=== PATIENT | male | born 1960 | race Two or more races ===

== ENCOUNTER 2018-07-24 21:08 | Observation (INO) | payer BC ==
[2018-07-24 21:36] LABS: #Basophils 0.1 thou/uL (0.0-0.2); #Eosinphils 0.3 thou/uL (0.0-0.7); #Lymphocytes 1.2 thou/uL (1.20-3.40); #Monocytes 0.5 thou/uL (0.11-0.59); #Neutrophils 3.3 thou/uL (1.40-6.50); %Basophils 1.2 % (0.0-1.0); %Eosinophils 4.8 % (0.0-10.0); Hemoglobin 16.5 g/dL (14.0-18.0); Mean Corpuscular Hemoglobin 31.9 pg (27.0-31.0); Mean Corpuscular Volume 96.6 fL (78.0-98.0); Mean Platelet Volume 9.3 fL (7.4-10.4); Platelet Count 173 thou/uL (130-400); RBC Distribution Width 13.2 % (11.5-14.5); Red Blood Cell (RBC) Count 5.17 mill/uL (4.70-6.10); White Blood Cell (WBC) Count 5.4 thou/uL (4.8-10.8)
[2018-07-24 21:44] LABS: INR-International Normal Ratio 0.8; PTT 27.9 SEC (22.9-36.1); Prothrombin Time 11.6 SEC (12.0-14.7)
[2018-07-24 21:50] LABS: ALT (SGPT) 65 U/L (8-55); AST (SGOT) 34 U/L (5-34); Albumin 4.4 g/dL (3.5-5.0); Alkaline Phosphatase 105 U/L (40-150); Anion Gap 14 mmol/L (10-20); BUN (Urea Nitrogen) 20 mg/dL (8.4-25.7); Bilirubin, Total 0.4 mg/dL (0.2-1.2); Calc. Creatinine Clearance 0 mL/min (70-130); Calcium 9.7 mg/dL (7.8-10.44); Carbon Dioxide 24 mmol/L (22-29); Chloride 106 mmol/L (98-107); Estimated GFR-MDRD 81; Globulin 2.6 g/dL (2.4-3.5); Glucose 100 mg/dL (70-105); Potassium 4.4 mmol/L (3.5-5.1); Sodium 140 mmol/L (136-145)
[2018-07-24] MEDS ORDERED: Aspirin Chewable 81 MG TAB ONE (22:17)
--- NOTE | 2018-07-24 22:52 | CT ---
CT BRAIN WITHOUT CONTRAST: History: Numbness and tingling. Comparison: None. FINDINGS: Old right basal ganglia infarct. No acute hemorrhage, midline shift, or mass effect. The calvarium is intact. The paranasal sinuses and mastoids are clear. Calvarium is intact. IMPRESSION: No acute intracranial abnormality. Old right basal ganglia infarct. POS: [facility]
[2018-07-25 00:16] VITALS: BMI 32.8
[2018-07-25] MEDS ORDERED: Ondansetron ODT 4 MG TAB SL PRN (00:34)
[2018-07-25] MEDS ORDERED: Acetaminophen 325 MG TAB PO PRN (00:34)
[2018-07-25] MEDS ORDERED: Ondansetron PF 4 MG/2 ML Vial IVP PRN ×2 (00:34→06:08)
[2018-07-25] MEDS ORDERED: Sodium Chloride 0.9% 1,000 ML IV SCH (00:34)
[2018-07-25] MEDS ORDERED: Labetalol HCl 100 MG/20 ML VIAL SLOW IVP PRN (06:07)
[2018-07-25] MEDS ORDERED: Senokot S 8.6-50 MG TAB PO PRN (06:08)
[2018-07-25] MEDS ORDERED: Temazepam 15 MG CAP PO PRN (06:08)
[2018-07-25] MEDS ORDERED: Acetaminophen 500 MG TAB PO PRN (06:08)
[2018-07-25] MEDS ORDERED: Ondansetron ODT 4 MG TAB PO PRN (06:08)
[2018-07-25] MEDS ORDERED: Calcium Carbonate 500 MG ChewTAB PO PRN (06:08)
--- NOTE | 2018-07-25 07:26 | HP ---
The patient admitted just before midnight 07/24/2018. The patient's PCP is myself, Dr. Elieser Manuel. HISTORY OF PRESENT ILLNESS: The patient presented to the emergency department following right-sided paresthesias through right face, arm, and leg with sudden onset. The patient denied any speech or ataxia symptoms. Symptom worsened over several hours, prompting the patient to present to the emergency department, found to have blood pressures 190s systolic over 110s diastolic. A CAT scan showed prior basal ganglial infarction. The patient was admitted to the floor for observation for TIA and hypertensive urgency/emergency. PAST MEDICAL HISTORY/PAST SURGICAL HISTORY/ALLERGIES: On review of past medical , social, surgical history includes no known drug allergies. History of psoriatic arthritis, followed with Dr. Evy Austin. MEDICATIONS: Folic acid 1 mg, turmeric supplement 500 mg twice daily, ibuprofen 200 mg t.i.d. p.r.n. joint pain, methotrexate 2.5 mg 6 tabs every week. SOCIAL HISTORY: The patient is a nonsmoker. Denies any alcohol or illicit drug use. FAMILY HISTORY: Mother had CVA. REVIEW OF SYSTEMS: GENERAL: no fevers, no chills HEENT: positive congestion and post nasal drip RESPIRATORY: no cough or wheeze CARDIAC: no chest pain or palliations GI: no diarrhea or abdomen pain : no dysuria, no abnormal urine stream JAMIA: positive parasthesia right sided; no weakness PSYCH: no depression or anxiety. VITAL SIGNS: HR 60-90's BP 170s/90's PHYSICAL EXAMINATION: GENERAL: no acute distress HEENT: normocephalic atraumatic EYES: PERRAL NECK: supple nontender CARDIAC: RRR no Murmurs RESPIRATORY: no wheeze or rhonchi ABDOMEN: soft nontender, + Bowel sounds throughout JAMAI: no focal deficits, 5/5 strength bilaterally, speech normal, A&O x 2 REVIEW OF LABORATORY WORK: White blood cell count of 5.4, hemoglobin of 16.5, platelet count is 173. INR of 0.8. Troponin x1 less than 0.01. Sodium of 140, potassium of 4.4, BUN of 20, creatinine of 0.95, blood glucose of 100, total bilirubin of 0.4, AST of 34, ALT of 65, albumin of 4.4. As per HPI, brain CT showed no acute intracranial processes. Old right basal ganglial infarct present. ASSESSMENT/PLAN: Transient ischemic attack, rule out cerebrovascular accident, hypertensive urgency, psoriatic arthritis. Agree with initiation of aspirin, which the patient received in emergency department, we will continue daily. Given the patient with no prior significant surgical history, no history of CVA present on CT scan, which was remote and old. We will follow up with echo, carotid, and MRI of brain. Consult Neurology for any additional opinions on medication changes other than full-dose aspirin at this point in time to cover with p.r.n. medications. Otherwise, we will have permissive hypertension until CVA workup is complete with labetalol for any breakthrough hypertension symptoms. Goal following reports to titrate the patient's blood pressure down over the next 48 hours. We will ensure the patient is ambulatory and able to pass bedside swallow evaluation. We will follow up with any Physical Therapy or Speech Therapy consultations if any deficits are found. Job ID: [id number] MTDD
[2018-07-25] MEDS ORDERED: Methotrexate Sodium 2.5 MG TAB PO SCH (09:00)
[2018-07-25] MEDS ORDERED: Aspirin 325 MG TAB PO SCH (09:00)
[2018-07-25] MEDS: Aspirin 325 mg Enteric Coated Tablet PO SCH (09:33)
--- NOTE | 2018-07-25 10:39 | ULT ---
CAROTID DOPPLER ULTRASOUND EVALUATION: HISTORY: TIAs. FINDINGS: Multiple longitudinal and transverse images of the carotid arteries obtained using a multihertz linea r ray transducer. Real-time, color flow, and spectral waveform Doppler analysis demonstrates some mi nimal intimal thickening in the distal right CCA extending to the proximal right ICA. This measures approximately 10-15%. More prominent distal left CCA and proximal left ICA plaque is seen. This res ults in approximately 25-30% left distal CCA and proximal left ICA stenosis. Flow velocity has not s ignificantly increased. CCA flow velocity in the right measures 79/20 cm/s and in the left 80/23 cm/ s. ICA flow velocities measure 80/40 cm on the right and 72/32 cm on the left. Antegrade flow is seen in both vertebral arteries. IMPRESSION: Approximately 30% distal left common carotid artery and proximal left internal carotid artery stenosi s due to predominantly noncalcified plaques. No other significant flow-limiting lesion seen. POS: [facility]
--- NOTE | 2018-07-25 11:19 | MRI ---
MRI BRAIN WITH AND WITHOUT CONTRAST: HISTORY: Resolution of right-sided weakness. TIA versus stroke. COMPARISON: None. TECHNIQUE: MRI of the brain is performed with and without intravenous Gadolinium administration. Multisequentia l, multiplanar imaging is performed. FINDINGS: No hemorrhage on the axial gradient echo sequence. No parenchymal mass, mass effect, or midline shift. Brain volume is age appropriate. Cortical sandoval white matter differentiation is preserved. Ventricles and sulci are patent and symmetric. Central arterial flow voids are maintained. Absent restricted diffusion. Prominent Virchow-Richardson space versus cystic lacunar infarct in the right deep sandoval matter structures. Minimal T2 and FLAIR white matter hyperintensities. Mild mucosal disease of the paranasal sinuses. Mucus retention cyst in the left maxillary sinus. Ad equate mastoid air cell aeration. Central arterial flow voids are maintained. Absent restricted diffusion. No pathologic enhancement of the brain parenchyma. IMPRESSION: 1. No pathologic enhancement of the brain parenchyma. 2. Absent restricted diffusion. 3. No acute infarct. POS: [facility]
[2018-07-25] MEDS ORDERED: Gadobenate Dimeglumine 529 MG/1 ML (20ML VIAL) ONE (13:17)
[2018-07-25] MEDS ORDERED: Losartan/Hydrochlorothiazide 100 mg/25 mg Tablet PO SCH (16:15)
[2018-07-25] MEDS ORDERED: Clopidogrel Bisulfate 300 MG TAB PO SCH (17:00)
[2018-07-25] MEDS ORDERED: Atorvastatin Calcium 40 MG TAB PO SCH (21:00)
[2018-07-26 06:02] LABS: Cardiac Risk 5.8 (Less than 4.5)
[2018-07-26 06:34] LABS: Free T4 (Free Thyroxine) 0.97 ng/dL (0.70-1.48); Thyroid Stimulating Hormone 1.5118 uIU/mL (0.35-4.94)
[2018-07-26 06:46] LABS: Folate (Folic Acid) 3.2 ng/mL (7.0-31.4)
[2018-07-26 07:56] VITALS: BP 143/89; TEMP 98.5
[2018-07-26] MEDS ORDERED: Clopidogrel Bisulfate 75 MG TAB PO SCH (09:00)
[2018-07-26] MEDS ORDERED: Aspirin Chewable 81 MG TAB PO SCH (09:00)
[2018-07-26] MEDS: Aspirin 325 mg Enteric Coated Tablet PO SCH (09:16)
--- NOTE | 2018-07-27 11:03 | DIS ---
DATE OF ADMISSION: 07/25/2018 DATE OF DISCHARGE: 07/26/2018 PRIMARY CARE PHYSICIAN: Elieser Manuel MD CHIEF COMPLAINT: Paresthesias. HISTORY OF PRESENT ILLNESS: The patient with minimal prior medical history with elevated blood pressure outside in the clinic, however, was undergoing diet and exercise changes, had lost double digit pounds, prior to admission, he had subsequent total one-sided paresthesias without weakness, slurred speech, or otherwise, head CT did not show any acute events however, did uncover an old CVA. The patient underwent MRI of the brain along with carotid Doppler and echo, found to have minimal diastolic dysfunction and preserved ejection fraction less than 50% carotid artery stenosis bilaterally, ranged from 15% to 30% actually. The patient had one more bout of paresthesias in the same side, which coincided with hypertension. Diagnoses include TIA, history of right-sided CVA, right-sided paresthesias, resolved hypertensive urgency. Dr. Fabian of Neurology was consulted. The patient was started on atorvastatin 40 mg, baby aspirin 81 mg, continued on methotrexate for his psoriatic arthritis, Plavix 75 mg, losartan/hydrochlorothiazide 50/12.5. Discussed with patient, likely we will initiate beta venita when he follows up in clinic to further titrate his blood pressure down to goal. Provided instructions for facial droop, slurred speech, and arm drop for return to emergency department. Follow up with myself, Dr. Elieser Manuel in seven days in the clinic. DISCHARGE DIET: Heart healthy. DISCHARGE ACTIVITY: As tolerated. We will write for half days or days off for the rest of the week for work excuse. LABORATORY DATA: Laboratory work, the patient also still has folic acid deficiency, however, is replacing on outpatient basis. Total cholesterol up to 296 up from outpatient check. We will trend laboratory work on followup in several weeks. Job ID: [id number]
== END 2018-07-26 10:25 | disposition home or self-care (01) ==
LOC: ERS 21:08 → 2SE 07-25 00:02
PROVIDERS: ADMIT Family Medicine; ATTEND Family Medicine
DX: G45.9 Transient cerebral ischemic attack, unspecified (principal); I16.0 Hypertensive urgency; I10 Essential (primary) hypertension; L40.50 Arthropathic psoriasis, unspecified; Z86.73 Personal history of transient ischemic attack (TIA), and cerebral infarction without residual deficits; Z79.899 Other long term (current) drug therapy
CPT/HCPCS: 36415; 70450; 70553; 80053; 80061; 82607; 82746; 84439; 84443; 84481; 84484; 85025; 85610; 85730; 93005; 93306; 93880; 96360; 96361; A9577; G0378; J8610

== ENCOUNTER 2018-10-11 07:07 | Outpatient (CLI) | payer BC ==
--- NOTE | 2018-10-11 10:55 | NM ---
CARDIAC SPECT: HISTORY: A 57-year-old male with diastolic dysfunction, TIA. TECHNIQUE: A myocardial perfusion scan was performed using the single-isotope 1-day protocol with Technetium 99m sestamibi. Eleven mCi were injected intravenously for the rest exam followed by 31 mCi for the stre ss study. Exercise stress was monitored and interpreted by Dr. Claudia Matthews, nurse practitioner. FINDINGS: Homogeneous tracer distribution is seen in the myocardial segments on stress and rest images without fixed or reversible defects. GATED SPECT LVEF: 68%. WALL MOTION EXAM: Normal. IMPRESSION: Normal exam. POS: [facility]
== END 2018-10-11 07:08 | disposition home or self-care (01) ==
LOC: NM 07:07
PROVIDERS: ATTEND Family Medicine
DX: I51.89 Other ill-defined heart diseases (principal)
CPT/HCPCS: 78452; 93017; A9500

== ENCOUNTER 2018-10-19 15:45 | Outpatient (CLI) | payer BC | END 2018-10-19 15:46 | disposition home or self-care (01) | LOC: CTENTCT 15:45 | PROVIDERS: ATTEND Specialist | DX: J32.9 Chronic sinusitis, unspecified (principal) | CPT/HCPCS: 70486 ==

== ENCOUNTER 2018-11-24 11:54 | Day surgery (SDC) | payer BC ==
[2018-11-23 11:32] VITALS: BMI 32.6
[2018-11-24] MEDS ORDERED: Oxymetazoline HCl 0.05% ( 15 ML ) ONE (12:38)
[2018-11-24] MEDS ORDERED: Lidocaine 1% w/Epinephrine 1:100K 20 ML VIAL ONE (13:22)
[2018-11-24] MEDS ORDERED: Midazolam HCl 2 mg/2 ml Vial ONE (15:49)
[2018-11-24] MEDS ORDERED: Fentanyl 100 MCG/2 ML VIAL ONE ×2 (15:49→17:35)
[2018-11-24] MEDS ORDERED: Lidocaine 2% Jelly 5 ML TUBE ONE (15:49)
[2018-11-24] MEDS ORDERED: EPINEPHrine 1 MG/ML AMP ONE (16:33)
[2018-11-24] MEDS ORDERED: Triamcinolone 40 MG/ML VIAL ONE (16:47)
--- NOTE | 2018-11-25 08:58 | OP ---
DATE OF PROCEDURE: 11/24/2018 PREOPERATIVE DIAGNOSES: Nasal polyposis, chronic sinusitis, hypertrophic inferior turbinates. POSTOPERATIVE DIAGNOSES: Nasal polyposis, chronic sinusitis, hypertrophic inferior turbinates. PROCEDURES PERFORMED: 1. Nasal polypectomy. 2. Bilateral nasal endoscopy with submucosal resection of inferior turbinates. 3. Bilateral nasal endoscopy with total ethmoidectomy. 4. Bilateral nasal endoscopy with maxillary antrostomy with removal of tissue. 5. Bilateral nasal endoscopy with frontal sinusotomy. 6. Bilateral nasal endoscopy with sphenoidotomy. 7. Stereotactic image guidance. DESCRIPTION OF PROCEDURE: After consent was obtained, the patient was identified, brought to the operating room, and placed on the operating room table in the supine position. Consent was obtained, notifying the patient of the possibility of additional infections, bleeding, brain injury, and eye/orbital injury. The patient was placed on the operating room table, and general endotracheal anesthesia and intravenous access was obtained. The patient was then positioned, prepped and draped for endoscopic sinus surgery. Nasal preparation included trimming nasal vestibular hairs and spraying in topical Afrin. We then placed Afrin topical solution on nasal pledgets and strategically located them intranasally. The perinasal mucosa was injected with 1% lidocaine with 1:100,000 epinephrine in the submucoperichondrial plane of the septum, lateral nasal wall, and anterior to the uncinate. The patient was then prepped and draped in a sterile fashion and positioned for endoscopic sinus surgery. NASAL POLYPECTOMY: Under endoscopic visualization, the nasal cavity was systematically examined and encountered large inflammatory polyps. These polyps were infiltrated 1% lidocaine with 1:100,000 epinephrine. The polyps were then addressed using the [employer] shaver. Then, the polyps were removed with care not to injure the surrounding normal mucosa. Samples of polyps were taken and sent for histologic evaluation. Bleeding was then controlled. BILATERAL NASAL ENDOSCOPY WITH SUBMUCOSAL RESECTION OF INFERIOR TURBINATES: With the 0-degree endoscope, the patient underwent systematic nasal endoscopy. There were no suspicious internasal masses or lesions identified. We then focused our attention to the osteomeatal complex region under the middle turbinate. The inferior turbinates were visualized with a 0 degree endoscope and outfractured with a [place] elevator. The inferior medial aspect was cauterized with the electrocautery. Hemostasis was obtained . After adequate airway was established, we turned our attention to the contralateral side and used a similar procedure. Again, a [place] elevator was used to outfracture inferior turbinates under endoscopic visualization. With a suction cautery, the free inferior medial aspect was cauterized under direct visualization along the length of the inferior turbinate. At this point, we then turned our attention to the contralateral side and proceeded with endoscopic sinus surgery. At the completion of the case, Rice keel splints were placed in the ethmoid cavities after the ethmoidectomy. There were no complications. The patient tolerated the procedure well and was discharged to the recovery room in stable condition prior to return to the preoperative day stay with ultimate discharge home. Prescriptions for pain medication and antibiotics were provided. The patient received intramuscular Depo-Medrol during the case. BILATERAL NASAL ENDOSCOPY WITH TOTAL ETHMOIDECTOMY: The anterior face of the ethmoid bulla was entered and with the micro-debrider, dissection continued posteriorly to the ground lamella. The limits of dissection included the insertion of the middle turbinate, medial orbital wall, and base of skull. We similarly identified the frontal recess and removed shrouds of bone and debris in that region to obtain patency into the agger nasi region and frontal recess. We then entered the ground lamella and its anteroinferior aspect and proceeded posteriorly, opening the posterior ethmoid air-cell system. Again, the limits of dissection included the base of skull and medial orbital wall. BILATERAL NASAL ENDOSCOPY WITH MAXILLARY ANTROSTOMY WITH REMOVAL OF TISSUE: The uncinate was then identified and the extent of the uncinate was appreciated by out-fracturing the uncinate with the ball-tip probe. We then used the sickle blade to disarticulate the uncinate from the lateral nasal wall. This was then removed with straight biting and upbiting punches with the remaining shrouds of mucosa and bony septum removed with the micro-debrider. The natural os of the maxillary sinus was then identified and enlarged with the maxillary punches and back biting forceps. BILATERAL NASAL ENDOSCOPY WITH FRONTAL SINUSOTOMY: Following the ethmoidectomy, we then turned our attention to the frontal nasal recess. The agger nasi cells were addressed and the frontal recess was exposed. The natural opening to the frontal sinus was identified. At this point, any obstructing shrouds of mucosa and bony fragments were removed with a curved microdebrider. The wound was then examined and found to be free of any obstructing debris. We then turned our attention to the contralateral side and performed a similar procedure again under endoscopic visualization using a 45-degree scope. We were able to visualize the frontal recess. Obstructing shrouds of mucosa and bone were removed with a microdebrider. The natural os of frontal sinus was identified and enlarged and irrigated. At this point, the frontal sinusotomy was completed and we turned to the next area of concern. BILATERAL NASAL ENDOSCOPY WITH SPHENOIDOTOMY: The anterior face of the sphenoid was identified and entered in its extreme anteroinferior aspect. A sphenoid punch was then used to enlarge the sphenoidotomy and no injury to the optic nerve or internal carotid artery occurred. STEREOTACTIC IMAGE GUIDANCE: At this point, we then turned our attention to the contralateral side and proceeded with endoscopic sinus surgery. At the completion of the case, [place] keel splints were placed in the ethmoid cavities after the ethmoidectomy. There were no complications. The patient tolerated the procedure well and was discharged to the recovery room in stable condition prior to return to the preoperative Day Stay with ultimate discharge home. Prescriptions for pain medication and antibiotics were provided. The patient received intramuscular Depo-Medrol during the case. FINDINGS: Extensive polypoid inflammatory changes throughout all sinus cavities. The patient had pansinusitis with allergic fungal mucin apparent in maxillary sinuses. Job ID: [id number]
== END 2018-11-24 19:30 | disposition home or self-care (01) ==
LOC: SDC 11:54
PROVIDERS: ATTEND Specialist
PROC: 099V8ZZ Drainage of Left Ethmoid Sinus, Via Natural or Artificial Opening Endoscopic (ICD-10-PCS; principal; 2018-11-24)
PROC: 099R8ZZ Drainage of Left Maxillary Sinus, Via Natural or Artificial Opening Endoscopic (ICD-10-PCS; principal; 2018-11-24)
PROC: 099W8ZZ Drainage of Right Sphenoid Sinus, Via Natural or Artificial Opening Endoscopic (ICD-10-PCS; principal; 2018-11-24)
PROC: 09BK4ZZ Excision of Nasal Mucosa and Soft Tissue, Percutaneous Endoscopic Approach (ICD-10-PCS; principal; 2018-11-24)
PROC: 099S8ZZ Drainage of Right Frontal Sinus, Via Natural or Artificial Opening Endoscopic (ICD-10-PCS; principal; 2018-11-24)
PROC: 099X8ZZ Drainage of Left Sphenoid Sinus, Via Natural or Artificial Opening Endoscopic (ICD-10-PCS; principal; 2018-11-24)
PROC: 099Q8ZZ Drainage of Right Maxillary Sinus, Via Natural or Artificial Opening Endoscopic (ICD-10-PCS; principal; 2018-11-24)
PROC: 8E09XBZ Computer Assisted Procedure of Head and Neck Region (ICD-10-PCS; principal; 2018-11-24)
PROC: 09TL8ZZ Resection of Nasal Turbinate, Via Natural or Artificial Opening Endoscopic (ICD-10-PCS; principal; 2018-11-24)
PROC: 099U8ZZ Drainage of Right Ethmoid Sinus, Via Natural or Artificial Opening Endoscopic (ICD-10-PCS; principal; 2018-11-24)
PROC: 099T8ZZ Drainage of Left Frontal Sinus, Via Natural or Artificial Opening Endoscopic (ICD-10-PCS; principal; 2018-11-24)
DX: J32.4 Chronic pansinusitis (principal); J33.0 Polyp of nasal cavity; J34.3 Hypertrophy of nasal turbinates; M19.90 Unspecified osteoarthritis, unspecified site; I10 Essential (primary) hypertension; Z79.82 Long term (current) use of aspirin; Z79.899 Other long term (current) drug therapy
CPT/HCPCS: J0171; J2001; J2250; J3010; J3301